=== PATIENT | male | born 2000 | race Caucasian/White ===

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

== ENCOUNTER 2018-10-13 18:33 | Emergency (ER) | payer OTHER, SELFPAY ==
[2018-10-13 18:40] VITALS: BP 136/87; PULSE 69; RESP 18; TEMP 36.6; O2SAT 98; BMI 24.3
--- NOTE | 2018-10-13 18:49 | HMH.EDUTC ---
[facility] [place] Impression: Nausea Disposition: Home, Self-Care Condition on Discharge: Good Instructions: DI for Nausea -- Adult Prescriptions: Ondansetron [Ondansetron Odt 8mg Tab] 8 mg PO TID PRN 5 Days #20 tab PRN Reason: Nausea Referrals: Provider,Referral, MD [Primary Care Provider] - Time of Disposition: 18:53 Medical Decision Making - Emanuel Inquiry Pt receiving controlled substance: No Vital Signs: 10/13/18 18:40 Temperature 97.9 F Temperature Source Oral Pulse Rate [Left Radial] 69 Respiratory Rate 18 Blood Pressure [Left Arm] 136/87 Blood Pressure Mean [Left Arm] 103 Blood Pressure Source [Left Arm] Automatic Cuff Blood Pressure Position [Left Arm] Sitting 02 Sat by Pulse Oximetry 98 Oxygen Delivery Method Room Air [facility] [place] - General Stated complaint: NAUSA Time Seen by Provider: 10/13/18 18:49 Mode of Arrival: Ambulatory Source of Information: Patient Limitations: No Limitations Description of Symptoms (Recalled from Triage Doc. by RN): C/O NAUSEA AND STOMACH CRAMPS HEENT Symptoms (Recalled from RN notes): No Resp Symptoms (Recalled from RN notes): No Skin Symptoms (Recalled from RN notes): No MS Symptoms (Recalled from RN notes): No Functional Status (Recalled from RN notes): N/A - History of Present Illness Provider Complaint: Nausea, stomach cramps X 1 day. No vomiting. Loose stools. No fever. Denies ear pain, sore throat, cough. Onset (ago): day(s) (1) Radiation: abdomen Relieving factors: none Exacerbating factors: none Associated symptoms: nausea/vomiting - Related Data Previous Rx's Medication Instructions Recorded Ondansetron [Zofran 8mg ODT] 8 mg PO Q8H #15 tab 08/16/17 Oseltamivir Phosphate [Tamiflu 75 mg PO BID 5 Days #10 cap 08/16/17 75mg Capsule] Azithromycin [Z-Sriram 250mg Tab] 250 mg PO UD DOSE PK #6 tab 05/25/18 Ondansetron [Zofran 4mg ODT] 4 mg PO Q8HP PRN #20 tab.rapdis 05/25/18 methylPREDNISolone [Medrol] 4 mg PO DIRECTED #21 tab.ds.pk 05/25/18 Ondansetron [Ondansetron Odt 8mg 8 mg PO TID PRN 5 Days #20 tab 10/13/18 Tab] Allergies Allergy/AdvReac Type Severity Reaction Status Date / Time No Known Allergies Allergy Verified 05/25/18 16:27 - Worker's Comp Is this a Worker's Comp case?: No [facility] History - Hepatitis A Screen Drug use history?: No High risk sexual behaviors?: No History of sexually transmitted infection?: No Currently employed?: No Childcare worker?: No Do you have indoor plumbing?: Yes Do you have electricity?: Yes Attestation statement:: This patient has been screened for Hepatitis A risk factors. I have reviewed the patient's past medical history: Yes Medical History: Denies:: Cancer, Diabetes Mellitus Type 1, Diabetes Mellitus Type 2, Hypertension, MRSA Other Surgeries: Yes: No Previous Surgery Amputation: No Fractures: No - Social History Smoking Status: Never smoker Alcohol Intake: never Occupational Status: employed - Psychiatric History Expresses thoughts of harming self/others: None Suicide Plan Description: No Plan ROS Obtained: Yes All systems reviewed & no additional complaints - Gastrointestinal Gastrointestingal: Reports: nausea Physical Exam - General General appearance: alert, in no apparent distress - Head Head exam: atraumatic, normocephalic, normal inspection - Eye Eye exam: Present: normal appearance, PERRL, EOMI - ENT ENT exam: Present: normal exam, normal oropharynx, mucous membranes moist, TM's normal bilaterally, normal external ear exam - Neck Neck exam: Present: normal inspection, full ROM, trachea midline. Absent: meningismus, lymphadenopathy - Chest Chest inspection: Present: normal inspection, symmetric chest wall rise. Absent: tenderness - Respiratory Respiratory exam: Present: normal lung sounds bilaterally. Absent: respiratory distress - Cardiovascular Cardiovascular exam: Present: regular rate, normal rhythm. Abs
--- NOTE | 2018-10-13 18:52 | ED_ITS ---
[facility] [place] Clinical Impression: Nausea Disposition: Home, Self-Care Condition on Discharge: Good Instructions: DI for Nausea -- Adult Prescriptions: Ondansetron [Ondansetron Odt 8mg Tab] 8 mg PO TID PRN 5 Days #20 tab PRN Reason: Nausea Referrals: Provider,Referral, MD [Primary Care Provider] - Time of Disposition: 18:53 Medical Decision Making - Emanuel Inquiry Pt receiving controlled substance: No Vital Signs: 10/13/18 18:40 Temperature 97.9 F Temperature Source Oral Pulse Rate [Left Radial] 69 Respiratory Rate 18 Blood Pressure [Left Arm] 136/87 Blood Pressure Mean [Left Arm] 103 Blood Pressure Source [Left Arm] Automatic Cuff Blood Pressure Position [Left Arm] Sitting 02 Sat by Pulse Oximetry 98 Oxygen Delivery Method Room Air [facility] [place] H[place] - General Stated complaint: NAUSA Time Seen by Provider: 10/13/18 18:49 Mode of Arrival: Ambulatory Source of Information: Patient Limitations: No Limitations Description of Symptoms (Recalled from Triage Doc. by RN): C/O NAUSEA AND STOMACH CRAMPS HEENT Symptoms (Recalled from RN notes): No Resp Symptoms (Recalled from RN notes): No Skin Symptoms (Recalled from RN notes): No MS Symptoms (Recalled from RN notes): No Functional Status (Recalled from RN notes): N/A - History of Present Illness Provider Complaint: Nausea, stomach cramps X 1 day. No vomiting. Loose stools. No fever. Denies ear pain, sore throat, cough. Onset (ago): day(s) (1) Radiation: abdomen Relieving factors: none Exacerbating factors: none Associated symptoms: nausea/vomiting - Related Data Previous Rx's Medication Instructions Recorded Ondansetron [Zofran 8mg ODT] 8 mg PO Q8H #15 tab 08/16/17 Oseltamivir Phosphate [Tamiflu 75 mg PO BID 5 Days #10 cap 08/16/17 75mg Capsule] Azithromycin [Z-Sriram 250mg Tab] 250 mg PO UD DOSE PK #6 tab 05/25/18 Ondansetron [Zofran 4mg ODT] 4 mg PO Q8HP PRN #20 tab.rapdis 05/25/18 methylPREDNISolone [Medrol] 4 mg PO DIRECTED #21 tab.ds.pk 05/25/18 Ondansetron [Ondansetron Odt 8mg 8 mg PO TID PRN 5 Days #20 tab 10/13/18 Tab] Allergies Allergy/AdvReac Type Severity Reaction Status Date / Time No Known Allergies Allergy Verified 05/25/18 16:27 - Worker's Comp Is this a Worker's Comp case?: No H History - Hepatitis A Screen Drug use history?: No High risk sexual behaviors?: No History of sexually transmitted infection?: No Currently employed?: No Childcare worker?: No Do you have indoor plumbing?: Yes Do you have electricity?: Yes Attestation statement:: This patient has been screened for Hepatitis A risk factors. I have reviewed the patient's past medical history: Yes Medical History: Denies:: Cancer, Diabetes Mellitus Type 1, Diabetes Mellitus Type 2, Hypertension, MRSA Other Surgeries: Yes: No Previous Surgery Amputation: No Fractures: No - Social History Smoking Status: Never smoker Alcohol Intake: never Occupational Status: employed - Psychiatric History Expresses thoughts of harming self/others: None Suicide Plan Description: No Plan ROS Obtained: Yes All systems reviewed & no additional complaints - Gastrointestinal Gastrointestin
[2018-10-13 19:17] VITALS: BP 136/87; PULSE 69; RESP 18; TEMP 36.6; O2SAT 98
== END 2018-10-13 19:19 | disposition home or self-care (01) ==
PROVIDERS: Emergency Provider Physician Assistant
DX: R11.0 Nausea (principal)
CPT/HCPCS: 99201

== ENCOUNTER → 2019-12-01 09:21 | Outpatient (CLI) | payer OTHER, SELFPAY ==
[2019-12-02 09:19] LABS: Covid-19 Nasal PCR Sendout UK Not Detected
== END ==
PROVIDERS: Visit Provider Otolaryngology
DX: Z03.818 Encounter for observation for suspected exposure to other biological agents ruled out (principal)
CPT/HCPCS: U0003

== ENCOUNTER → 2020-04-25 11:42 | Outpatient (CLI) | payer OTHER, SELFPAY ==
[2020-04-25 11:45] LABS: Adenovirus,PCR Not Detected (NotDetected); Bordetella Pertussis Not Detected (NotDetected); Chlamydophila Pneumoniae, PCR Not Detected (NotDetected); Coronavirus 19, PCR Not Detected (NotDetected); Coronavirus 229E Not Detected (NotDetected); Coronavirus NL63 Not Detected (NotDetected); Coronavirus OC43 Not Detected (NotDetected); Coronovirus HKU1,PCR Not Detected (NotDetected); Human Metapneumovirus Not Detected (NotDetected); Influenza A, PCR Not Detected (NotDetected); Influenza AH1, 2009 Not Detected (NotDetected); Influenza AH1, PCR Not Detected (NotDetected); Influenza AH3,PCR Not Detected (NotDetected); Influenza B, PCR Not Detected (NotDetected); Mycoplasma Pneumoniae, PCR Not Detected (NotDetected); Parainfluenza 1, PCR Not Detected (NotDetected); Parainfluenza 2, PCR Not Detected (NotDetected); Parainfluenza 3, PCR Not Detected (NotDetected); Parainfluenza 4, PCR Not Detected (NotDetected); Respiratory Syncytial Virus Not Detected (NotDetected); Rhinovirus/Enterovirus Not Detected (NotDetected)
== END ==
PROVIDERS: Visit Provider Otolaryngology
DX: Z03.818 Encounter for observation for suspected exposure to other biological agents ruled out (principal)
CPT/HCPCS: 36415; 87581; 87633; 87798

== ENCOUNTER → 2020-05-12 10:04 | Outpatient (CLI) | payer OTHER, SELFPAY ==
[2020-05-12 10:07] LABS: Adenovirus,PCR Not Detected (NotDetected); Bordetella Pertussis Not Detected (NotDetected); Coronavirus 19, PCR Not Detected (NotDetected); Coronavirus 229E Not Detected (NotDetected); Coronavirus NL63 Not Detected (NotDetected); Coronavirus OC43 Not Detected (NotDetected); Coronovirus HKU1,PCR Not Detected (NotDetected); Human Metapneumovirus Not Detected (NotDetected); Influenza A, PCR Not Detected (NotDetected); Influenza AH1, 2009 Not Detected (NotDetected); Influenza AH1, PCR Not Detected (NotDetected); Influenza AH3,PCR Not Detected (NotDetected); Influenza B, PCR Not Detected (NotDetected); Parainfluenza 1, PCR Not Detected (NotDetected); Parainfluenza 2, PCR Not Detected (NotDetected); Parainfluenza 3, PCR Not Detected (NotDetected); Parainfluenza 4, PCR Not Detected (NotDetected); Respiratory Syncytial Virus Not Detected (NotDetected); Rhinovirus/Enterovirus Not Detected (NotDetected)
[2020-05-12 10:08] LABS: Chlamydophila Pneumoniae, PCR Not Detected (NotDetected); Mycoplasma Pneumoniae, PCR Not Detected (NotDetected)
== END ==
PROVIDERS: Visit Provider Otolaryngology
DX: Z03.818 Encounter for observation for suspected exposure to other biological agents ruled out (principal)
CPT/HCPCS: 87581; 87633; 87798

== ENCOUNTER 2020-05-12 13:40 | Emergency (ER) | payer OTHER, SELFPAY ==
[2020-05-12 13:51] VITALS: BP 134/66; PULSE 60; RESP 17; TEMP 37; O2SAT 97; BMI 24.3
--- NOTE | 2020-05-12 13:55 | HMH.EDUTC ---
[facility] [place] Clinical Impression: Viral syndrome, Exposure to COVID-19 virus Sinusitis Qualifiers: Sinusitis location: unspecified location Chronicity: acute Recurrence: non-recurrent Qualified Code(s): J01.90 - Acute sinusitis, unspecified Disposition: Home, Self-Care Condition on Discharge: Good Instructions: Preventing the Spread of Coronavirus Discharge Instructions Additional Instructions: Drink plenty of fluids. Take tylenol for pain or fever. Return if you begin to have difficulty breathing. Follow up with your regular doctor. GO TO THE ER FOR ANY WORSENING SYMPTOMS Prescriptions: Ondansetron [Zofran 4mg ODT] 4 mg PO Q8HP PRN #12 tab.rapdis PRN Reason: Nausea Transmission Status: Received by [facility] #[id number] Azithromycin [Z-Sriram 250mg Tab*] 250 mg PO UD DOSE PK #6 tab Transmission Status: Received by [facility] #[id number] Referrals: PCP,No [Non-Staff] - Time of Disposition: 14:05 Medical Decision Making - Medical Records Medical records reviewed: No: I reviewed the patient's medical records. - Emanuel Inquiry Pt receiving controlled substance: No Vital Signs: 05/12/20 13:51 05/12/20 14:16 Temperature 98.6 F 98.6 F Temperature Source Oral Pulse Rate 60 Pulse Rate [Left] 60 Respiratory Rate 17 17 Blood Pressure 134/66 Blood Pressure [Right Arm] 134/66 Blood Pressure Mean [Right Arm] 88 Blood Pressure Source [Right Arm] Automatic Cuff Blood Pressure Position [Right Arm] Sitting 02 Sat by Pulse Oximetry 97 Oxygen Delivery Method Room Air Room Air [facility] [place] HPI - General Stated complaint: nauseau, vomiting Time Seen by Provider: 05/12/20 13:57 Mode of Arrival: Ambulatory Source of Information: Patient Limitations: No Limitations Description of Symptoms (Recalled from Triage Doc. by RN): N/V x 2 today, sore throat, runny nose, cough with yellow mucus HEENT Symptoms (Recalled from RN notes): Yes Resp Symptoms (Recalled from RN notes): Yes Skin Symptoms (Recalled from RN notes): No MS Symptoms (Recalled from RN notes): No Functional Status (Recalled from RN notes): wnl - History of Present Illness Provider Complaint: He states that since yesterday he had had sinus congestion and sinus drainage. He was nauseated last night. He vomited X2 then. He denies cough and shortness of breath. - Related Data Previous Rx's Medication Instructions Recorded Azithromycin [Z-Sriram 250mg Tab*] 250 mg PO UD DOSE PK #6 tab 05/12/20 Ondansetron [Zofran 4mg ODT] 4 mg PO Q8HP PRN #12 tab.rapdis 05/12/20 Allergies Allergy/AdvReac Type Severity Reaction Status Date / Time No Known Allergies Allergy Verified 05/12/20 13:54 - Worker's Comp Is this a Worker's Comp case?: No Is this an [facility] [employer] Worker's Comp?: No Is this a Shailesh Worker's Comp?: No H History - Hepatitis A Screen Drug use history?: No High risk sexual behaviors?: No History of sexually transmitted infection?: No Currently employed?: No Childcare worker?: No Do you have indoor plumbing?: Yes Do you have electricity?: Yes Attestation statement:: This patient has been screened for Hepatitis A risk factors. I have reviewed the patient's past medical history: Yes Medical History: Denies:: Cancer, Diabetes Mellitus Type 1, Diabetes Mellitus Type 2, Hypertension, MRSA Other Surgeries: Yes: No Previous Surgery Amputation: No Fractures: No - Social History Smoking Status: Never smoker Alcohol Intake: never Occupational Status: other ROS Obtained: Yes All systems reviewed & no additional complaints - Constitutional Constitutional: Reports system reviewed and no additional complaints, except as docu - Eyes Eyes: Reports system reviewed and no additional complaints, except as docu - ENT Ears, Nose, Mouth, and Throat: Reports system reviewed and no additional complaints, except as docu - Cardiovascular Cardiovascular: Reports system reviewed and no additional complai
[2020-05-12 14:16] VITALS: BP 134/66; PULSE 60; RESP 17; TEMP 37; O2SAT 97
== END 2020-05-12 14:17 | disposition home or self-care (01) ==
PROVIDERS: Emergency Provider Nurse Practitioner Family; PCP Emergency Medicine
DX: Z20.828 Contact with and (suspected) exposure to other viral communicable diseases (principal); B34.9 Viral infection, unspecified; J01.90 Acute sinusitis, unspecified
CPT/HCPCS: 99201

== ENCOUNTER 2021-02-25 14:20 | Emergency (ER) | payer OTHER, SELFPAY ==
[2021-02-25 14:26] VITALS: BP 137/85; PULSE 73; RESP 16; TEMP 37.1; O2SAT 97; BMI 26.2
[2021-02-25 14:35] LABS: Apearance,Urine Cloudy (Clear); Bilirubin,Urine Negative (Negative); Blood, Urine Trace (Negative); Color,Urine Yellow (Yellow); Glucose,Urine (UA) Negative (Negative); Ketones,Urine Negative (Negative); PH,Urine 8.5 (5.0-8.5); Protein,Urine Trace (Negative); UTC Leukocyte Esterase,Urine 3+ (Negative); Urobilinogen,Urine 0.2 EU/dl (0.2)
[2021-02-25 14:36] LABS: UTC Nitrate,Urine Negative (Negative)
[2021-02-25 14:52] VITALS: BP 137/85; PULSE 73; RESP 20; TEMP 37.1
--- NOTE | 2021-02-25 15:10 | HMH.EDUTC ---
[facility] – [place] Clinical Impression: Painful urination Disposition: Still a Patient Condition on Discharge: Fair Referrals: Provider,Referral, [Referring] - Time of Disposition: 15:15 Medical Decision Making - Medical Records Medical records reviewed: No: I reviewed the patient's medical records. - Emanuel Inquiry Pt receiving controlled substance: No Vital Signs: 02/25/21 14:26 02/25/21 14:52 Temperature 98.7 F 98.7 F Temperature Source Oral Pulse Rate 73 Pulse Rate [Left] 73 Respiratory Rate 16 20 Blood Pressure 137/85 Blood Pressure [Right Arm] 137/85 Blood Pressure Mean [Right Arm] 102 02 Sat by Pulse Oximetry 97 - Lab Data Lab results reviewed: Yes: I reviewed the patient's lab results. Lab Results 02/25/21 14:34: Urine Color Yellow, Urine Appearance Cloudy, Urine pH 8.5, Ur Specific [place] 1.020, Urine Protein Trace, Urine Glucose (UA) Negative, Urine Ketones Negative, Urine Blood Trace, Urine Nitrate Negative, Urine Bilirubin Negative, Urine Urobilinogen 0.2, Ur Leukocyte Esterase 3+ A Orders (Tests/Meds): ORDERS Category Date Time Status Urine Culture Stat Micro 02/25/21 14:28 Received Medical Decision Narrative: He was transferred to the ER due to family request. [facility] [place] HPI - General Stated complaint: possible kidney stone Time Seen by Provider: 02/25/21 15:10 Mode of Arrival: Ambulatory Source of Information: Patient Limitations: No Limitations Description of Symptoms (Recalled from Triage Doc. by RN): pt c/o of pain with urination HEENT Symptoms (Recalled from RN notes): No Resp Symptoms (Recalled from RN notes): No Skin Symptoms (Recalled from RN notes): No MS Symptoms (Recalled from RN notes): No Functional Status (Recalled from RN notes): na - History of Present Illness Provider Complaint: He states that when he got out of bed this morning he went and urinated and he had pain in his lower abdomen. He rates that pain at that time as a 5 to 6 out of 10 on pain scale. He continued to have discomfort of his lower abdomen for a few minutes after he voided, then it resolved. Then, later when he went and urinated again he has the same exact symptoms. He denies any history of kidney stones, but he states that he does have a strong family history of getting them. He denies any pain at this time. He denies any back pain at all during his symptoms. He denies any nausea/vomiting/diarrhea/constipation. He denies any fever or chills. He denies any testicular pain or swelling. And, he denies any urethral discharge. - Related Data Previous Rx's Medication Instructions Recorded Azithromycin [Z-Sriram 250mg Tab*] 250 mg PO UD DOSE PK #6 tab 05/12/20 Ondansetron [Zofran 4mg ODT] 4 mg PO Q8HP PRN #12 tab.rapdis 05/12/20 Allergies Allergy/AdvReac Type Severity Reaction Status Date / Time No Known Allergies Allergy Verified 05/12/20 13:54 - Worker's Comp Is this a Worker's Comp case?: No [facility] History - Hepatitis A Screen Drug use history?: No High risk sexual behaviors?: No History of sexually transmitted infection?: No Currently employed?: No Childcare worker?: No Do you have indoor plumbing?: Yes Do you have electricity?: Yes Attestation statement:: This patient has been screened for Hepatitis A risk factors. I have reviewed the patient's past medical history: Yes Medical History: Denies:: Cancer, Diabetes Mellitus Type 1, Diabetes Mellitus Type 2, Hypertension, MRSA Other Surgeries: Yes: No Previous Surgery Amputation: No Fractures: No - Social History Smoking Status: Never smoker Alcohol Intake: never Occupational Status: other ROS Obtained: Yes All systems reviewed & no additional complaints - Constitutional Constitutional: Denies chills, Denies fever(s) - Eyes Eyes: Denies eye discharge - ENT Ears, Nose, Mouth, and Throat: Denies dizziness, Denies otalgia, Denies sore throat, Denies vertigo/dizziness - Cardiovascular C
[2021-02-25 15:21] VITALS: BP 152/90; PULSE 72; RESP 16; TEMP 36.7; O2SAT 99; BMI 26.2
--- NOTE | 2021-02-25 16:05 | HMH.EDGENADL ---
ED Disposition Clinical Impression: Painful urination Disposition: Still a Patient Condition on Discharge: Good Instructions: DI for Urinary Tract Infection (UTI), DI for Urinary Tract Infection in Children Prescriptions: Doxycycline Hyclate 100 mg PO BID #19 cap Transmission Status: Pending to [email or web address] #[id number] Referrals: Provider,Referral, [Referring] - - Critical Care Critical Care Time: No Attestation: On 02/25/21, the high probability of a clinically significant, sudden or life threatening deterioration of the following system(s) required my full and direct attention, intervention and personal management. The time I documented below is in addition to time spent performing reported procedures but includes the following listed in this critical care notation. Medical Decision Making - Medical Records Medical records reviewed: Yes: I reviewed the patient's medical records. - Emanuel Inquiry Pt receiving controlled substance: No Vital Signs: 02/25/21 14:26 02/25/21 14:52 02/25/21 15:21 Temperature 98.7 F 98.7 F 98.1 F Temperature Source Oral Oral Pulse Rate 73 Pulse Rate [Left] 73 72 Respiratory Rate 16 20 16 Blood Pressure 137/85 Blood Pressure [Right Arm] 137/85 152/90 H Blood Pressure Mean [Right Arm] 102 110 Blood Pressure Source [Right Arm] Automatic Cuff Blood Pressure Position [Right Arm] Sitting 02 Sat by Pulse Oximetry 97 99 Oxygen Delivery Method Room Air - Lab Data Lab Results 02/25/21 14:34: Urine Color Yellow, Urine Appearance Cloudy, Urine pH 8.5, Ur Specific [place] 1.020, Urine Protein Trace, Urine Glucose (UA) Negative, Urine Ketones Negative, Urine Blood Trace, Urine Nitrate Negative, Urine Bilirubin Negative, Urine Urobilinogen 0.2, Ur Leukocyte Esterase 3+ A Orders (Tests/Meds): ED MEDICATIONS Generic Name Dose Route Start Last Admin Trade Name Freq PRN Reason Stop Dose Admin Doxycycline Hyclate 100 mg 02/25/21 21:00 02/25/21 17:13 Doxycycline Hycl 100 Mg Tablet PO 03/11/21 20:59 100 mg BID DIONISIO Administration Discontinued Medications Generic Name Dose Route Start Last Admin Trade Name Freq PRN Reason Stop Dose Admin Ceftriaxone Sodium 1 gm 02/25/21 16:30 02/25/21 17:13 Ceftriaxone 1gm Vial IM 02/25/21 16:31 1 gm ONCE ONE Administration Lidocaine HCl 0 ml 02/25/21 16:30 02/25/21 17:13 Lidocaine 1% 5ml Pf Vial IM 02/25/21 16:31 5 ml ONCE ONE Administration ORDERS Category Date Time Status Urine Culture Stat Micro 02/25/21 14:28 Received Medical Decision Narrative: Patient is a 20-year-old male presents to the ED today for further evaluation of dysuric symptoms. Patient initially seen over the urgent care center, has a urinary microscopy concerning for UTI, urine gonorrhea and chlamydia were sent. With the patient, I believe the likelihood of urinary tract infection is relatively high in this patient, although mother is at bedside and is concerned for a possible kidney stone, and patient has a strong family history of kidney stones. We will obtain a CT abdomen without IV contrast for further evaluation of this, if negative will treat empirically for STI with 500 mg of IM Rocephin, and 100 mg of p.o. doxycycline for [address] scan has been obtained, no evidence of urinary tract stone, patient has been informed of this result, given a gram of IM Rocephin, and initial dose of doxycycline, is to take his next dose tomorrow morning. Patient verbalized understanding to the use of this medication including taking it with water, and avoiding significant sun exposure. Patient should avoid sexual contact until his STD test comes back. General Adult HPI - General Chief complaint: Urogenital-Male Stated complaint: possible kidney stone Time Seen by Provider: 02/25/21 15:10 Mode of Arrival: Ambulatory Limitations: No Limitations Description of Symptoms (Recalled from ER Triage Doc. by RN
--- NOTE | 2021-02-25 16:21 | CT_ITS ---
PROCEDURE: CT ABDOMEN PELVIS WO CON CLINICAL INDICATION: Eval for kidney stone Lower abdominal pain COMPARISON: CT ABDPELW/O CT ABD PELVIS W/O CONTRAST from 09/24/2016 TECHNIQUE: Axial images obtained with sagittal and coronal reformats. All CT scans at the facility use one or more dose reduction, viz: automated exposure control, ma/kV adjustment per patient size (including targeted exams where dose is matched to indication, i.e. head), or iterative reconstruction technique. FINDINGS: LOWER THORAX: No acute finding ABDOMEN & PELVIS: The liver, spleen, adrenal glands, pancreas, and kidneys have an unremarkable appearance. No renal or ureteral calculi. No hydronephrosis or hydroureter. No intestinal obstruction or free air. Bowel gas pattern is nonspecific with some scattered nondistended fluid-filled loops of small bowel. No evidence of appendicitis. No pelvic mass or abnormal fluid collection. Suspected small bone island in the right femoral neck IMPRESSION: No acute finding Dictated by: Vivek Kearns MD 02/25/2021 16:52 Vivek Kearns MD in [facility] 02/25/2021 16:52
--- NOTE | 2021-02-25 16:21 | PC.NURSE ---
notified rad of CT order
[2021-02-25 17:35] VITALS: BP 118/84; PULSE 74; RESP 18; TEMP 36.7; O2SAT 98
[2021-02-27 22:11] LABS: Neisseria gonorrhoeae, NAA Positive (Negative)
== END 2021-02-25 17:35 | disposition home or self-care (01) ==
LOC: UTC 14:25 → ER 15:10
PROVIDERS: Nurse Practitioner Family; Emergency Provider Student in an Organized Health Care Education/Training Program; PCP Emergency Medicine
DX: R30.0 Dysuria (principal); R10.30 Lower abdominal pain, unspecified
CPT/HCPCS: 74176; 81003; 87086; 87491; 87591; 96372; 99283

== ENCOUNTER 2021-04-15 10:59 | Emergency (ER) | payer OTHER, SELFPAY ==
[2021-04-15 12:28] VITALS: BP 0/0; PULSE 0; RESP 0; TEMP -17.7; TEMP 0
== END 2021-04-15 12:29 | disposition left against medical advice (07) ==
LOC: UTC 11:02
PROVIDERS: Emergency Provider Nurse Practitioner
DX: Z53.21 Procedure and treatment not carried out due to patient leaving prior to being seen by health care provider (principal)

== ENCOUNTER 2022-01-28 16:21 | Emergency (ER) | payer OTHER, SELFPAY ==
--- NOTE | 2022-01-28 14:16 | ECG_ITS ---
APPROVED REPORT Exam: Resting ECG HR:64 bpm ECG Measurements Heart Rate 64 AXES MI 137 P 75 QRSd 96 QRS 70 QT 393 T 52 QTc 402 Conclusion SINUS RHYTHM WITH OCCASIONAL SUPRAVENTRICULAR PREMATURE COMPLEXES MINIMAL VOLTAGE CRITERIA FOR LVH, CONSIDER NORMAL VARIANT [MEETS CRITERIA IN ONE OF: R(aVL), S(V1), R(V5), R(V5/V6)+S(V1)] BORDERLINE ECG UNCONFIRMED REPORT Electronically signed by : Adria Montenegro MD 01/28/2022 19:21:31
[2022-01-28 16:22] VITALS: BP 162/103; PULSE 76; RESP 18; TEMP 36.4; O2SAT 96; BMI 22.5
[2022-01-28 16:30] VITALS: BP 165/91; PULSE 66; RESP 16; O2SAT 99
--- NOTE | 2022-01-28 16:36 | HMH.EDGENADL ---
Discharge Plan Disposition Patient Disposition: Home, Self-Care Condition: Good Chief Complaint: Overdose Prescriptions Prescriptions: No Action doxycycline hyclate 100 MG capsule 100 mg PO BID Qty: 19 0RF azithromycin 250 MG tablet 250 mg PO UD DOSE PK Qty: 6 0RF Rx Instructions: Take two (2) tablets today, then one (1) tablet days #2 thru #5 methylprednisolone 4 MG tablets,dose pack 4 mg PO DIRECTED 6 Days Qty: 21 0RF [id number]-[id number]-FT 118 ML syrup 5 ml PO Q6HP PRN (Reason: Cough) Qty: 240 0RF azithromycin 250 MG tablet 250 mg PO UD DOSE PK Qty: 6 0RF Rx Instructions: Take two (2) tablets today, then one (1) tablet days #2 thru #5 Referrals Follow up/Referrals: Provider,Referral, [Referring] - See instructions Activity Restrictions/Add. Instructions Additional Instructions/Restrictions: Return to the emergency department for any recurrence or worsening of symptoms. Continue Vivitrol treatment program. Clinical Impressions Clinical Impression: Opiate overdose Discharge ED Provider: Leonidas Vasquez General Adult HPI General Chief complaint: Overdose Stated complaint: Overdose Time Seen by Provider: 01/28/22 16:37 History of Present Illness HPI narrative: History obtained from patient and his mother. Patient admits to using 2 doses of a Percocet laced with fentanyl today. He says he had a tablet and used one fourth of it earlier this morning. He used another fourth of it at about 3:30 PM. He says that he administers it by smoking it. After the second dose his grandmother found him unresponsive inside. Window apparently had to be broken out to get to him. However, he did not require Narcan and aroused on his own. Currently he says he feels normal although he is visibly drowsy. He denies using any other drugs or any alcohol today. He has a history of opiate abuse. He went through a 30-day treatment program but used again right after he completed. His mother then enrolled him in a Vivitrol program in [place] and he has been in that program for the past 11 months and has been clean until today. He missed his most recent Vivitrol dose 2 weeks ago. He has no other chronic health problems. Related Data Previous Rx's Medication Instructions Recorded azithromycin 250 mg tablet 250 mg PO UD DOSE PK #6 tabs 05/12/20 doxycycline hyclate 100 mg capsule 100 mg PO BID #19 caps 02/25/21 azithromycin 250 mg tablet 250 mg PO UD DOSE PK #6 tabs 05/20/21 pjgwoqenbnjkhch-qhurgfgxlhrmjqz-OF 5 ml PO Q6HP PRN Cough #240 mL 05/20/21 2 mg-30 mg-10 mg/5 mL oral syrup methylprednisolone 4 mg tablets in 4 mg PO DIRECTED 6 days #21 05/20/21 a dose pack packets Allergies Allergy/AdvReac Type Severity Reaction Status Date / Time No Known Allergies Allergy Verified 05/12/20 13:54 PFSH PFS Social History (Updated 01/28/22 @ 16:52 by Citlalli Aguilar RN) Smoking Status: Never smoker second hand exposure: No alcohol intake: never current occupational status: other Travel in the last 8 weeks: None ROS Obtained: Yes Systems reviewed as appropriate & no additional complaints except as documented Constitutional Constitutional: Reports system reviewed and no additional complaints, except as documented and Denies weakness Cardiovascular Cardiovascular: Denies chest pain Respiratory Respiratory: Denies shortness of breath and Denies cough Gastrointestinal Gastrointestingal: Denies abdominal pain, diarrhea or vomiting Genitourinary Male Genitourinary: Denies difficulty urinating and Denies flank pain Neurologic Neurologic: Denies weakness Physical Exam General General appearance: in no apparent distress and other (Mildly drowsy. Answers questions appropriately.) Head Head exam: atraumatic and normocephalic Eye Eye exam: Present normal appearance and EOMI ENT ENT exam: Present mucous membranes moist Neck Neck exam: Present normal in
[2022-01-28 17:00] VITALS: BP 140/103; PULSE 79; RESP 16; O2SAT 96
--- NOTE | 2022-01-28 17:22 | PC.NURSE ---
shaheen ordered for pt. pt resting in bed, pt mother at BS will continue to monitor
[2022-01-28 17:30] VITALS: BP 128/75; PULSE 60; RESP 16; O2SAT 96
--- NOTE | 2022-01-28 17:45 | PC.NURSE ---
checked on pt at this time, pt resting in bed, has drank some gatorade. States no needs at this time, call light within reach.
--- NOTE | 2022-01-28 19:51 | PC.NURSE ---
shift change report given to [email or web address]
[2022-01-28 20:33] VITALS: BP 111/62; PULSE 56; RESP 18; TEMP 36.6; O2SAT 99
== END 2022-01-28 20:37 | disposition home or self-care (01) ==
PROVIDERS: Emergency Provider Emergency Medicine; PCP Emergency Medicine
DX: T40.601A Poisoning by unspecified narcotics, accidental (unintentional), initial encounter (principal)
CPT/HCPCS: 93005; 99284

== ENCOUNTER → 2022-02-08 13:22 | Outpatient (CLI) | payer OTHER, SELFPAY ==
[2022-02-08 13:38] LABS: Basophils # 0.1 K/mm3 (0-0.2); Basophils % 1.5 % (0.1-2.0); Eosinophils # 0.3 K/mm3 (0.0-0.4); Eosinophils % 3.7 % (0.1-12.0); Hematocrit 43.8 % (42.0-52.0); Hemoglobin 14.7 g/dL (14.1-18.0); Lymphocytes # 3.2 K/mm3 (0.7-4.5); Lymphocytes % 40.8 % (10-50); Mean Corpuscular HGB Conc 33.5 g/dL (31.8-35.4); Mean Corpuscular Hemoglobin 32.3 pg (27.0-31.2); Mean Corpuscular Volume 96.5 fl (80-94); Mean Platelet Volume 8.7 fl (7.4-10.4); Monocytes # 0.4 K/mm3 (0.1-1.0); Monocytes % 4.8 % (1.7-9.3); Neutrophils # 3.8 K/mm3 (1.8-7.8); Neutrophils % 49.3 % (37.0-80.0); Platelet Count 196 K/mm3 (142-424); Red Blood Count 4.54 M/mm3 (4.60-6.20); Red Cell Distribution Width 12.4 % (11.5-17.5); White Blood Count 7.8 K/mm3 (4.8-10.8)
[2022-02-08 13:57] LABS: Barbiturates Screen,Urine Negative ng/ml (<200)
[2022-02-08 13:58] LABS: Amphetamine/Metha Screen,Urine Negative ng/ml (<1000); Benzodiazepines Screen,Urine Negative ng/ml (<200)
[2022-02-08 13:59] LABS: Cocaine Screen,Urine Negative ng/ml (<300)
[2022-02-08 14:00] LABS: Methadone Screen,Urine Negative ng/ml (<300)
[2022-02-08 14:01] LABS: Cannabinoid Screen,Urine Positive ng/ml (<50); Opiate Screen,Urine Negative ng/ml (<300)
[2022-02-08 14:02] LABS: Phencyclidine Screen,Urine Negative ng/ml (<25)
[2022-02-08 14:45] LABS: Chloride 100 mmol/L (98-107); Potassium 3.3 mmoL/L (3.5-5.1); Sodium 142 mmol/L (136-145)
[2022-02-08 14:47] LABS: Blood Urea Nitrogen 8 mg/dl (9-20); Estimated Glomerular Filt Rate 120 ml/min (>60); GFR (African American) 145 ML/MIN (>60)
[2022-02-08 14:48] LABS: Alanine Aminotransferase 24 U/L (12-78); Albumin Level 4.9 g/dl (3.5-5.0); Albumin/Globulin Ratio 1.9 (1.1-1.8); Alkaline Phosphatase 74 U/L (38-126); Anion Gap 15.3 mEq/L (5-15); Aspartate Amino Transferase 32 U/L (17-59); Bilirubin,Total 0.6 mg/dl (0.2-1.3); Calcium 9.2 mg/dl (8.4-10.2); Carbon Dioxide 30 mmol/L (22.0-30.0); Globulin 2.6 g/dL (1.3-3.2); Glucose 85 mg/dl (74-100); Total Protein,Serum 7.5 g/dl (6.3-8.2)
== END ==
PROVIDERS: Visit Provider Nurse Practitioner Psychiatric/Mental Health
DX: Z00.00 Encounter for general adult medical examination without abnormal findings (principal)
CPT/HCPCS: 36415; 80053; 80305; 85025

== ENCOUNTER → 2023-04-05 13:38 | Outpatient (CLI) | payer OTHER, SELFPAY ==
[2023-04-05 23:21] LABS: Amphetamine/Metha Screen,Urine Negative ng/ml (<1000)
[2023-04-05 23:22] LABS: Barbiturates Screen,Urine Negative ng/ml (<200); Benzodiazepines Screen,Urine Negative ng/ml (<200)
[2023-04-05 23:23] LABS: Cannabinoid Screen,Urine Negative ng/ml (<50)
[2023-04-05 23:24] LABS: Cocaine Screen,Urine Negative ng/ml (<300); Methadone Screen,Urine Negative ng/ml (<300)
[2023-04-05 23:25] LABS: Opiate Screen,Urine Negative ng/ml (<300); Phencyclidine Screen,Urine Negative ng/ml (<25)
== END ==
PROVIDERS: PCP Emergency Medicine; Visit Provider Emergency Medicine
DX: F11.90 Opioid use, unspecified, uncomplicated (principal)
CPT/HCPCS: 80305

== ENCOUNTER → 2023-04-27 15:53 | Outpatient (CLI) | payer OTHER, SELFPAY ==
[2023-04-27 22:03] LABS: Amphetamine/Metha Screen,Urine Negative ng/ml (<1000)
[2023-04-27 22:04] LABS: Barbiturates Screen,Urine Negative ng/ml (<200); Benzodiazepines Screen,Urine Negative ng/ml (<200)
[2023-04-27 22:05] LABS: Cannabinoid Screen,Urine Negative ng/ml (<50)
[2023-04-27 22:06] LABS: Opiate Screen,Urine Negative ng/ml (<300)
[2023-04-27 22:07] LABS: Cocaine Screen,Urine Negative ng/ml (<300); Methadone Screen,Urine Negative ng/ml (<300)
[2023-04-27 22:09] LABS: Phencyclidine Screen,Urine Negative ng/ml (<25)
[2023-05-04 10:43] LABS: Amphetamines IA Negative ng/mL (Cutoff:50); Barbiturates, IA Negative ug/mL (Cutoff:0.1); Benzodiazepines, IA Negative ng/mL (Cutoff:20); Cocaine & Metabolite, IA Negative ng/mL (Cutoff:25); Methadone, IA Negative ng/mL (Cutoff:25); Opiates, IA Negative ng/mL (Cutoff:5); Oxycodones, IA Negative ng/mL (Cutoff:5); Phencyclidine, IA Negative ng/mL (Cutoff:8); Propoxyphene, IA Negative ng/mL (Cutoff:50); THC (Marijauna) Metabolite, IA Negative ng/mL (Cutoff:5)
== END ==
PROVIDERS: PCP Internal Medicine; Visit Provider Nurse Practitioner Psychiatric/Mental Health
DX: F11.90 Opioid use, unspecified, uncomplicated (principal); Z51.81 Encounter for therapeutic drug level monitoring
CPT/HCPCS: 80305; 80307

== ENCOUNTER → 2023-05-13 15:43 | Outpatient (CLI) | payer OTHER, SELFPAY ==
[2023-05-13 16:30] LABS: Barbiturates Screen,Urine Negative ng/ml (<200); Benzodiazepines Screen,Urine Negative ng/ml (<200)
[2023-05-13 16:31] LABS: Amphetamine/Metha Screen,Urine Negative ng/ml (<1000)
[2023-05-13 16:32] LABS: Cannabinoid Screen,Urine Negative ng/ml (<50); Cocaine Screen,Urine Negative ng/ml (<300)
[2023-05-13 16:33] LABS: Methadone Screen,Urine Negative ng/ml (<300)
[2023-05-13 16:34] LABS: Opiate Screen,Urine Negative ng/ml (<300); Phencyclidine Screen,Urine Negative ng/ml (<25)
== END ==
LOC: LAB.DROPOF 15:44
PROVIDERS: PCP Internal Medicine; Visit Provider Nurse Practitioner Psychiatric/Mental Health
DX: Z51.81 Encounter for therapeutic drug level monitoring (principal)
CPT/HCPCS: 80307

== ENCOUNTER 2023-07-07 13:57 | Emergency (ER) | payer OTHER, SELFPAY ==
[2023-07-07 14:55] VITALS: BP 144/79; PULSE 75; RESP 20; TEMP 37; O2SAT 98; BMI 27.2
--- NOTE | 2023-07-07 15:07 | EXP.UTC ---
Discharge Plan Disposition Patient Disposition: Home, Self-Care Condition: Good Prescriptions Prescriptions: New ondansetron 4 mg Tablet,Disintegrating 4 mg PO Q8H PRN (Reason: Nausea) Qty: 20 0RF No Action Vivitrol 380 mg suspension,extended rel recon 380 mg IM Q4W Qty: 1 12RF Referrals Follow up/Referrals: Provider,Referral, MD [Primary Care Provider] - See instructions Activity Restrictions/Add. Instructions Additional Instructions/Restrictions: *Monitor Temp, Over the counter Motrin or Tylenol as directed/as needed Tylenol every 4 hours and Motrin every 6 hours (as long as your family doctor has told you that you can take it) for fever or pain. and straight to ER if unable to lower temp less than 101.0 after medication given *Warm salt water gargles may help to soothe the throat *Throat Lozenges? *Warm fluids like tea with honey may help to soothe the throat? *Sleep elevated Follow up IMMEDIATELY for new or worsening symptoms or no Noticeable improvement over the next 48-72 hours. 911 for difficulty breathing or swallowing You were tested for today for Upper Respiratory Panel with COVID19 your test result should be back in the next 24hours, you may check your results on the [facility] if your COVID or Influenza is positive on there your must Quarantine for 5 days Clinical Impressions Clinical Impression: Viral syndrome Stand Alone Forms Stand Alone Forms: Work/School Release Instructions Patient Instructions: DI for Viral Syndrome, DI for Nausea -- Adult Discharge ED Provider: Windy Calderon [facility] General Stated complaint: vomiting,fever Mode of Arrival: Ambulatory Source of Information: Patient Limitations: No Limitations Time Seen by Provider: 07/07/23 15:07 Description of Symptoms (Recalled from Triage Doc. by RN): PATIENT C/O NAUSEA AND FEVER SINCE LAST NIGHT HEENT Symptoms (Recalled from RN notes): No Resp Symptoms (Recalled from RN notes): No Skin Symptoms (Recalled from RN notes): No MS Symptoms (Recalled from RN notes): No Functional Status (Recalled from RN notes): WNL History of Present Illness Provider Complaint: Patient states that he started last night with fever, chills, nausea an over all not feeling well States today he was still not feeling well so he came in to get checked denies any known sick contacts Related Data Previous Rx's Medication Instructions Recorded naltrexone microspheres 380 mg 380 mg IM Q4W #1 ea 02/01/23 intramuscular suspension,extended release (Vivitrol) ondansetron 4 mg disintegrating 4 mg PO Q8H PRN Nausea #20 tabs 07/07/23 tablet Allergies Allergy/AdvReac Type Severity Reaction Status Date / Time No Known Allergies Allergy Verified 03/28/23 12:52 Worker's Comp Is this a Worker's Comp case?: No [facility] Disclaimer: The information contained in this section may have been updated after the patient was seen, as this information can be updated by other users. Medical History (Updated 07/07/23 @ 15:36 by Windy Calderon APRN) Opiate misuse Opiate misuse Social History (Updated 02/05/22 @ 13:51 by Lakshmi Simon APRN) Smoking Status: Current every day smoker tobacco type: e-cigarettes second hand exposure: No alcohol intake: never substance use type: former substance user, marijuana, heroin and opiates counseling given: Yes counseling provided: other current occupational status: employed Travel in the last 8 weeks: None adopted: No caregiver/support person: No foster care: No household members: family housing: house lives independently: No marital status: single number of children: 0 education level: high school service: No correction: No Hx Recent Travel: No sexually active: Yes caffeine: Yes physical activity: none working smoke detector in home: Yes fire extinguisher in home: Yes carbon monox detector in home: No firearms in home: Yes firearms unloaded and locked: Yes do you feel safe at home: Yes victim of physical abuse: No victim of emotional abuse: No victim of sexual abuse: No would you like helpful sources: No ROS Obtained: Yes All systems reviewed & no additional complaints except as documented and Yes Systems reviewed as appropriate & no additional complaints except as documented Constitutional Constitutional: Reports system reviewed and no additional complaints, except as documented, Reports as per HPI, Reports body ache, Reports chills and Reports fever(s) ENT Ears, Nose, Mouth, and Throat: Reports system reviewed and no additional complaints, except as documented and Reports as per HPI Cardiovascular Cardiovascular: Reports system reviewed and no additional complaints, except as documented and Reports as per HPI Respiratory Respiratory: Reports system reviewed and no additional complaints, except as documented and Reports as per HPI Gastrointestinal Gastrointestingal: Reports system reviewed and no additional complaints, except as documented, as per HPI and nausea; Denies abdominal pain, cramping, diarrhea or vomiting Physical Exam General General appearance: alert and in no apparent distress ENT ENT exam: Present mucous membranes moist Respiratory Respiratory exam: Present normal lung sounds bilaterally; Absent respiratory distress or wheezes Cardiovascular Cardiovascular exam: Present regular rate, normal rhythm and normal heart sounds Abdominal Exam Abdominal exam: Present soft and normal bowel sounds; Absent distention or tenderness Neurological Exam Neurological exam: Present alert, oriented X3 and normal gait Medical Decision Making Emanuel Inquiry Pt receiving controlled substance: No Emanuel was queried for this patient: No Vital Signs: 07/07/23 14:55 Temperature 98.6 F Temperature Source Oral Pulse Rate [Left Brachial] 75 Respiratory Rate 20 Blood Pressure [Left Arm] 144/79 H Blood Pressure Mean [Left Arm] 100 Blood Pressure Source [Left Arm] Automatic Cuff Blood Pressure Position [Left Arm] Sitting 02 Sat by Pulse Oximetry 98 Oxygen Delivery Method Room Air Lab Data Lab results reviewed: Yes I reviewed the patient's lab results.
[2023-07-07 15:29] LABS: UTC Influenza A Antigen Negative (Negative); UTC Influenza B Antigen Negative (Negative)
[2023-07-07 15:40] VITALS: BP 144/79; PULSE 75; RESP 20; TEMP 37; O2SAT 98
[2023-07-07 15:54] LABS: Adenovirus,PCR Not Detected (NotDetected); Coronavirus 19, PCR Not Detected (NotDetected); Coronavirus 229E Not Detected (NotDetected); Coronavirus NL63 Not Detected (NotDetected); Coronavirus OC43 Not Detected (NotDetected); Coronovirus HKU1,PCR Not Detected (NotDetected); Human Metapneumovirus Not Detected (NotDetected); Influenza A, PCR Not Detected (NotDetected); Influenza AH1, 2009 Not Detected (NotDetected); Influenza AH1, PCR Not Detected (NotDetected); Influenza AH3,PCR Not Detected (NotDetected); Influenza B, PCR Not Detected (NotDetected); Parainfluenza 1, PCR Not Detected (NotDetected); Parainfluenza 2, PCR Not Detected (NotDetected); Parainfluenza 3, PCR Not Detected (NotDetected); Parainfluenza 4, PCR Not Detected (NotDetected); Respiratory Syncytial Virus Not Detected (NotDetected); Rhinovirus/Enterovirus Not Detected (NotDetected)
== END 2023-07-07 15:42 | disposition home or self-care (01) ==
PROVIDERS: Emergency Provider Nurse Practitioner
DX: R11.0 Nausea (principal); R50.9 Fever, unspecified; B34.9 Viral infection, unspecified; F17.290 Nicotine dependence, other tobacco product, uncomplicated
CPT/HCPCS: 87632; 87635; 87804; 99212; 99214; G0463